=== PATIENT | male | born 1955 | race Caucasian/White ===

== ENCOUNTER 2021-12-05 11:51 | Observation (INO) ==
[2021-12-05] MEDS ORDERED: MOM Conc 10 ML UD.LIQ PO PRN (12:28)
[2021-12-05] MEDS ORDERED: Ondansetron ODT 4 MG TAB.RAPDIS SL PRN (12:28)
[2021-12-05] MEDS ORDERED: Mag Hydrox/Al Hydrox/Simeth 30 ML UDC PO PRN (12:28)
[2021-12-05] MEDS ORDERED: Naloxone 0.4 MG/ML INJ IVP PRN (12:28)
[2021-12-05 19:23] LABS: Basophils % 0.6 %; Eosinophils # 0.2 K/mcL (0.0-0.6); Eosinophils % 4.5 %; Hematocrit 35.5 % (37.5-50.1); Hemoglobin 11.1 g/dL (12.9-16.9); Immature Granulocytes % 0.6 % (0-4); Lymphocytes # 1.3 K/mcL (0.6-4.6); Lymphocytes % 27.7 %; Mean Corpuscular HGB Conc 31.3 g/dL (31.6-35.5); Mean Corpuscular Hemoglobin 28.1 pg (28.0-33.3); Mean Corpuscular Volume 89.9 fL (83.0-100.0); Mean Platelet Volume 8.2 fL (9.4-12.4); Monocytes # 0.8 K/mcL (0.0-1.3); Monocytes % 17.8 %; Neutrophils # 2.3 K/mcL (1.6-8.9); Platelet Count 381 K/mcL (140-400); Red Blood Count 3.95 M/mcL (4.19-5.50); Red Cell Distribution Width 14.9 % (11.5-14.5); Segmented Neutrophils % 48.8 %; White Blood Count 4.7 K/mcL (4.3-11.1)
[2021-12-05 19:33] LABS: INR 1.1; Prothrombin Time 12.6 Seconds (9.4-12.1)
[2021-12-05 19:35] LABS: Activated Partial Thrombo Time 31.3 Seconds (26.0-36.0)
[2021-12-05 19:45] LABS: Alanine Aminotransferase 99 Units/L (7-52); Albumin 3.7 g/dL (3.5-5.7); Albumin/Globulin Ratio 1.2 (1.1-2.2); Alkaline Phosphatase 202 Units/L (34-104); Aspartate Amino Transferase 121 Units/L (13-39); BUN/Creatinine Ratio 23 (6-26); Bilirubin,Total 0.6 mg/dL (0.3-1.0); Blood Urea Nitrogen 19 mg/dL (8-23); Carbon Dioxide 24 mEq/L (23-29); Chloride 102 mEq/L (98-107); Glucose 88 mg/dL (70-105); Osmolality,Calculated 282 (280-300); Potassium 3.6 mEq/L (3.5-5.1); Sodium 135 mEq/L (136-145); Total Protein 6.7 g/dL (6.4-8.9); eGFR For African Americans > 60 (> 60); eGFR For Non-African Americans > 60 (> 60)
[2021-12-06] MEDS ORDERED: Ringers Solution, Lactated 1,000 ML IVC SCH ×2 (00:01→10:14)
[2021-12-06] MEDS ORDERED: CeFAZolin Syr 2,000MG/20 ML 2,000 MG/20 ML SYRINGE IVPB ONE (07:44)
[2021-12-06] MEDS ORDERED: *HR* Propofol 200 MG/20 ML VIAL IVP ONE (07:45)
[2021-12-06] MEDS ORDERED: *HR* FentaNYL (PF) 100 MCG/2 ML VIAL ONE (07:45)
[2021-12-06] MEDS ORDERED: Lidocaine HCL 4 ML Topical Solution (Laryng-O-Jet Kit Sterile Pak) TP ONE (07:46)
[2021-12-06] MEDS ORDERED: Lidocaine -MPF 2% 2 ML VIAL ONE ×2 (07:46→08:20)
[2021-12-06] MEDS ORDERED: Ondansetron 4 MG/2 ML VIAL ONE (07:46)
[2021-12-06] MEDS ORDERED: *HR* Rocuronium Bromide 50 MG/5 ML VIAL ONE (07:46)
[2021-12-06] MEDS ORDERED: *HR* Succinylcholine 200 MG/10 ML VIAL IVP ONE (07:46)
[2021-12-06] MEDS ORDERED: *HR* HYDROmorphone PF 0.5 MG/0.5 ML SYRINGE IVP PRN (07:49)
[2021-12-06] MEDS ORDERED: *HR* OxyCODONE Immed Rel 5 MG TABLET PO PRN ×2 (07:49→10:14)
[2021-12-06] MEDS ORDERED: Ondansetron 4 MG/2 ML VIAL IVP PRN (07:49)
[2021-12-06] MEDS ORDERED: Tranexamic Acid 1,000 MG/10 ML VIAL ONE (08:44)
[2021-12-06] MEDS ORDERED: *HR* HYDROMORPHONE 2 MG/ML VIAL ONE (08:54)
[2021-12-06] MEDS ORDERED: Naloxone 0.4 MG/ML INJ IVP PRN (10:14)
[2021-12-06] MEDS ORDERED: Ondansetron ODT 4 MG TAB.RAPDIS SL PRN (10:14)
[2021-12-06] MEDS ORDERED: MOM Conc 10 ML UD.LIQ PO PRN (10:14)
[2021-12-06] MEDS ORDERED: Mag Hydrox/Al Hydrox/Simeth 30 ML UDC PO PRN (10:14)
[2021-12-06] MEDS: CeFAZolin 2,000 MG/120 ML BAG IVPB SCH ×2 (16:54→23:26)
[2021-12-07 00:14] VITALS: BP 129/77; PULSE 80; TEMP 97.6; O2SAT 95
== END 2021-12-07 13:24 | disposition home or self-care (01) ==
LOC: 4WAOSI
PROVIDERS: ADMIT Orthopaedic Surgery; ATTEND Orthopaedic Surgery

== ENCOUNTER 2021-12-18 13:44 | Inpatient (IN) ==
[2021-12-18] MEDS ORDERED: CeFAZolin Syr 2,000MG/20 ML 2,000 MG/20 ML SYRINGE IVPB ONE (14:08)
[2021-12-18] MEDS ORDERED: Ethanol\\Acetic Acid\\Na Ace\\Ben 1,000 ML IRRIG.SOLN IR ONE (14:09)
[2021-12-18] MEDS ORDERED: Ringers Solution, Lactated 1,000 ML IVC SCH ×2 (14:15→21:30)
[2021-12-18] MEDS ORDERED: *HR* FentaNYL (PF) 100 MCG/2 ML VIAL ONE (14:15)
[2021-12-18] MEDS ORDERED: *HR* Midazolam HCl 2 MG/2 ML VIAL ONE (14:16)
[2021-12-18] MEDS ORDERED: *HR* Propofol 200 MG/20 ML VIAL IVP ONE (14:16)
[2021-12-18] MEDS ORDERED: Ondansetron 4 MG/2 ML VIAL ONE ×2 (14:17→14:26)
[2021-12-18] MEDS ORDERED: Lidocaine -MPF 2% 2 ML VIAL ONE (14:17)
[2021-12-18] MEDS ORDERED: *HR* Rocuronium Bromide 50 MG/5 ML VIAL ONE (14:23)
[2021-12-18] MEDS ORDERED: Lidocaine -MPF 4% 5 ML AMPUL ONE (14:26)
[2021-12-18] MEDS ORDERED: *HR* OxyCODONE Immed Rel 5 MG TABLET PO PRN ×2 (14:35→21:30)
[2021-12-18] MEDS ORDERED: Ondansetron 4 MG/2 ML VIAL IVP PRN ×2 (14:35→21:30)
[2021-12-18] MEDS ORDERED: *HR* HYDROmorphone PF 0.5 MG/0.5 ML SYRINGE IVP PRN (14:35)
[2021-12-18] MEDS ORDERED: *HR* FentaNYL (PF) 100 MCG/2 ML VIAL IVP PRN (14:35)
[2021-12-18] MEDS ORDERED: Acetaminophen IV 1,000 MG/100 ML BAG IVPB ONE (17:01)
[2021-12-18] MEDS ORDERED: Tranexamic Acid 1,000 MG/10 ML VIAL ONE ×2 (17:05→18:47)
[2021-12-18] MEDS ORDERED: *HR* HYDROMORPHONE 2 MG/ML VIAL ONE (17:20)
[2021-12-18] MEDS ORDERED: Sugammadex Sodium 200 MG/2 ML VIAL IV ONE (17:44)
[2021-12-18] MEDS ORDERED: Naloxone 0.4 MG/ML INJ IVP PRN (21:30)
[2021-12-18] MEDS ORDERED: MOM Conc 10 ML UD.LIQ PO PRN (21:30)
[2021-12-18] MEDS ORDERED: Sennosides 8.6 MG TABLET PO PRN (21:30)
[2021-12-18] MEDS ORDERED: *HR* Promethazine 25 MG/ML VIAL IM PRN (21:30)
[2021-12-19] MEDS: CeFAZolin 2 GM/120 ML BAG IVPB SCH ×4 (00:05→23:23)
[2021-12-19 01:55] LABS: Basophils % 0.4 %; Hematocrit 34.5 % (37.5-50.1); Hemoglobin 10.8 g/dL (12.9-16.9); Immature Granulocytes % 0.6 % (0-4); Lymphocytes % 11.4 %; Mean Corpuscular HGB Conc 31.3 g/dL (31.6-35.5); Mean Corpuscular Hemoglobin 27.6 pg (28.0-33.3); Mean Corpuscular Volume 88.2 fL (83.0-100.0); Mean Platelet Volume 7.8 fL (9.4-12.4); Monocytes # 0.6 K/mcL (0.0-1.3); Monocytes % 7.2 %; Neutrophils # 6.8 K/mcL (1.6-8.9); Platelet Count 447 K/mcL (140-400); Red Blood Count 3.91 M/mcL (4.19-5.50); Red Cell Distribution Width 14.3 % (11.5-14.5); Segmented Neutrophils % 80.4 %; White Blood Count 8.5 K/mcL (4.3-11.1)
[2021-12-19 02:08] LABS: BUN/Creatinine Ratio 12 (6-26); Blood Urea Nitrogen 10 mg/dL (8-23); Calcium 8.8 mg/dL (8.6-10.3); Carbon Dioxide 26 mEq/L (23-29); Chloride 98 mEq/L (98-107); Glucose 154 mg/dL (70-105); Osmolality,Calculated 276 (280-300); Potassium 4.5 mEq/L (3.5-5.1); Sodium 132 mEq/L (136-145); eGFR For African Americans > 60 (> 60); eGFR For Non-African Americans > 60 (> 60)
[2021-12-19] MEDS: Ascorbic Acid 500 MG TABLET PO SCH ×2 (07:42→15:15)
[2021-12-19] MEDS: *HR* OxyCODONE Immed Rel 5 MG TABLET PO PRN ×4 (07:43→22:00)
[2021-12-19] MEDS: Multivit/Ca/Min/Fe/FA 1 TAB TABLET PO SCH (07:43)
[2021-12-20 05:31] LABS: Basophils % 0.4 %; Eosinophils # 0.2 K/mcL (0.0-0.6); Eosinophils % 1.8 %; Hematocrit 32.9 % (37.5-50.1); Hemoglobin 10.3 g/dL (12.9-16.9); Immature Granulocytes % 0.4 % (0-4); Lymphocytes # 1.8 K/mcL (0.6-4.6); Lymphocytes % 20.7 %; Mean Corpuscular HGB Conc 31.3 g/dL (31.6-35.5); Mean Corpuscular Hemoglobin 27.5 pg (28.0-33.3); Mean Corpuscular Volume 87.7 fL (83.0-100.0); Mean Platelet Volume 7.9 fL (9.4-12.4); Monocytes # 1.1 K/mcL (0.0-1.3); Monocytes % 11.8 %; Neutrophils # 5.8 K/mcL (1.6-8.9); Platelet Count 420 K/mcL (140-400); Red Blood Count 3.75 M/mcL (4.19-5.50); Red Cell Distribution Width 14.6 % (11.5-14.5); Segmented Neutrophils % 64.9 %; White Blood Count 8.9 K/mcL (4.3-11.1)
[2021-12-20 05:50] LABS: BUN/Creatinine Ratio 13 (6-26); Blood Urea Nitrogen 10 mg/dL (8-23); Calcium 8.4 mg/dL (8.6-10.3); Carbon Dioxide 30 mEq/L (23-29); Chloride 100 mEq/L (98-107); Glucose 105 mg/dL (70-105); Osmolality,Calculated 277 (280-300); Potassium 3.9 mEq/L (3.5-5.1); Sodium 134 mEq/L (136-145); eGFR For African Americans > 60 (> 60); eGFR For Non-African Americans > 60 (> 60)
[2021-12-20] MEDS: CeFAZolin 2 GM/120 ML BAG IVPB SCH ×2 (09:02→16:33)
[2021-12-20] MEDS: Ascorbic Acid 500 MG TABLET PO SCH ×2 (09:02→16:33)
[2021-12-20] MEDS: Multivit/Ca/Min/Fe/FA 1 TAB TABLET PO SCH (09:02)
[2021-12-20] MEDS: *HR* OxyCODONE Immed Rel 5 MG TABLET PO PRN (09:03)
[2021-12-21] MEDS: CeFAZolin 2 GM/120 ML BAG IVPB SCH ×2 (00:46→07:30)
[2021-12-21] MEDS: Melatonin 3 MG TABLET PO PRN ×2 (02:07→22:08)
[2021-12-21] MEDS: Ascorbic Acid 500 MG TABLET PO SCH ×2 (07:31→16:16)
[2021-12-21] MEDS: Multivit/Ca/Min/Fe/FA 1 TAB TABLET PO SCH (07:31)
[2021-12-21] MEDS ORDERED: cefTRIAXone 2,000 MG in 0.9 % Sodium Chloride 20 ML IVP SCH (10:00)
[2021-12-21] MEDS ORDERED: CeFAZolin 2,000 MG/120 ML BAG IVPB SCH (16:00)
[2021-12-21] MEDS ORDERED: ceFAZolin 1,000 MG in Water for inj. (sterile) 10 ML IVP SCH (16:00)
[2021-12-21] MEDS: CeFAZolin 2,000 MG/120 ML BAG IVPB SCH ×2 (16:17→23:51)
[2021-12-22] MEDS: Multivit/Ca/Min/Fe/FA 1 TAB TABLET PO SCH (09:39)
[2021-12-22] MEDS: CeFAZolin 2,000 MG/120 ML BAG IVPB SCH (09:39)
[2021-12-22] MEDS: Ascorbic Acid 500 MG TABLET PO SCH ×2 (09:46→15:27)
[2021-12-22] MEDS ORDERED: Lidocaine -MPF 1% 5 ML AMPUL INFILT ONE (13:07)
[2021-12-22] MEDS ORDERED: levoFLOXacin 750 MG/150 ML 750 MG/150 ML BAG IVPB ONE (14:59)
[2021-12-23] MEDS: Ascorbic Acid 500 MG TABLET PO SCH ×2 (09:25→16:55)
[2021-12-23] MEDS: Multivit/Ca/Min/Fe/FA 1 TAB TABLET PO SCH (09:25)
[2021-12-23] MEDS ORDERED: levoFLOXacin 750 MG/150 ML 750 MG/150 ML BAG IVPB SCH (20:00)
[2021-12-23] MEDS: hydrOXYzine pamoate 25 MG CAPSULE PO PRN (20:47)
[2021-12-24] MEDS: Ascorbic Acid 500 MG TABLET PO SCH ×2 (09:44→17:54)
[2021-12-24] MEDS: Multivit/Ca/Min/Fe/FA 1 TAB TABLET PO SCH (09:44)
[2021-12-24] MEDS: levoFLOXacin 750 MG/150 ML 750 MG/150 ML BAG IVPB SCH (13:05)
[2021-12-24 15:57] LABS: Basophils # 0.1 K/mcL (0.0-0.2); Basophils % 0.8 %; Eosinophils # 0.4 K/mcL (0.0-0.6); Eosinophils % 5.3 %; Hematocrit 34.4 % (37.5-50.1); Hemoglobin 10.7 g/dL (12.9-16.9); Immature Granulocytes % 0.6 % (0-4); Lymphocytes # 2.4 K/mcL (0.6-4.6); Lymphocytes % 29.4 %; Mean Corpuscular HGB Conc 31.1 g/dL (31.6-35.5); Mean Corpuscular Volume 86.6 fL (83.0-100.0); Mean Platelet Volume 7.7 fL (9.4-12.4); Monocytes # 0.8 K/mcL (0.0-1.3); Monocytes % 10.2 %; Neutrophils # 4.4 K/mcL (1.6-8.9); Platelet Count 461 K/mcL (140-400); Red Blood Count 3.97 M/mcL (4.19-5.50); Red Cell Distribution Width 14.3 % (11.5-14.5); Segmented Neutrophils % 53.7 %; White Blood Count 8.2 K/mcL (4.3-11.1)
[2021-12-24 19:23] LABS: INR 1.1; Prothrombin Time 12.3 Seconds (9.4-12.1)
[2021-12-24 19:25] LABS: Activated Partial Thrombo Time 33.5 Seconds (26.0-36.0)
[2021-12-24] MEDS: hydrOXYzine pamoate 25 MG CAPSULE PO PRN (21:21)
[2021-12-25] MEDS: Ascorbic Acid 500 MG TABLET PO SCH (08:29)
[2021-12-25] MEDS: Multivit/Ca/Min/Fe/FA 1 TAB TABLET PO SCH (08:29)
[2021-12-25] MEDS: levoFLOXacin 750 MG/150 ML 750 MG/150 ML BAG IVPB SCH (08:30)
[2021-12-25 11:00] VITALS: BP 119/78; PULSE 96; TEMP 97.6; O2SAT 94
== END 2021-12-25 12:21 | disposition home health service (06) | DRG 908 ==
LOC: SDCAOSI 13:44 → 4WAOSI 20:53
PROVIDERS: ADMIT Orthopaedic Surgery; ATTEND Orthopaedic Surgery